=== PATIENT | male | born 1960 | race Caucasian/White ===

== ENCOUNTER 2016-10-13 10:03 | Inpatient (IN) | payer MEDICAID, OTHER ==
[~2016-10-13] VITALS: Ht 177.8 cm; Wt 93.2 kg
[2016-10-13 10:26] VITALS: PULSE 84
[2016-10-13] MEDS ORDERED: PIPER-TAZO 3.375 GM IV (PMX) 100 ML IVPB STA (10:27)
[2016-10-13] MEDS ORDERED: SODIUM CHLORIDE 0.9% 1L BAG IV* STA (10:27)
[2016-10-13] MEDS ORDERED: VANCOMYCIN 1 GM (PMX) 250 ML IVPB STA (10:27)
[2016-10-13] MEDS ORDERED: ONDANSETRON 4 MG INJ IV PRN ×2 (11:00→11:30)
[2016-10-13] MEDS ORDERED: ACETAMINOPHEN 325 MG TAB PO PRN ×2 (11:00→11:30)
[2016-10-13 11:04] LABS: BASOPHILS % 0.5 % (0.0-2.0); EOSINOPHILS % 0.6 % (0.0-7.0); HEMATOCRIT 43.2 % (42.0-52.0); HEMOGLOBIN 14.4 g/dl (14.0-18.0); LYMPHOCYTES # 1.4 10^3/ul (0.8-2.9); LYMPHOCYTES % 20.7 % (15.0-51.0); MEAN CORPUSCULAR HEMOGLOBIN 30.2 pg (29.0-33.0); MEAN CORPUSCULAR HGB CONC 33.3 g/dl (32.0-37.0); MEAN CORPUSCULAR VOLUME 90.6 fl (82.0-101.0); MONOCYTE # 0.8 10^3/ul (0.3-0.9); MONOCYTES % 11.6 % (0.0-11.0); NEUTROPHILS % 66.3 % (39.0-77.0); PLATELET COUNT 218 10^3/UL (140-415); RED BLOOD COUNT 4.77 10^6/ul (4.70-6.10); RED CELL DISTRIBUTION WIDTH 13.4 % (11.5-14.5); WHITE BLOOD COUNT 6.5 10^3/ul (4.8-10.8)
--- NOTE | 2016-10-13 11:17 | RADRPT ---
PROCEDURE: XR Chest. CLINICAL INDICATION: Sepsis . TECHNIQUE: Single frontal chest x-ray. COMPARISON: None. FINDINGS: The lungs are clear of acute infiltrates, edema, effusions, or masses.. The cardiomediastinal silho uette is unremarkable. The osseous structures are intact. IMPRESSION: No acute cardiopulmonary disease. RPTAT: AA .Aung Mora MD, MD Date Time Electronically viewed and signed by .Aung Mora MD, MD on 10/13/2016 11:17 .L/
[2016-10-13 11:28] LABS: PARTIAL THROMBOPLASTIN TIME 31.5 Sec (25.0-35.0)
[2016-10-13] MEDS ORDERED: NACL 0.9% 3 ML SYG IV SCH (11:30)
[2016-10-13] MEDS ORDERED: HYDROCODONE/APAP (5/325) TAB PO PRN (11:30)
[2016-10-13] MEDS ORDERED: VANCOMYCIN IV PER PHARMACY XX SCH (11:30)
[2016-10-13 11:31] LABS: ALANINE AMINOTRANSFERASE 28 IU/L (13-69); ALBUMIN/GLOBULIN RATIO 1.08; ALKALINE PHOSPHATASE 95 IU/L (42-121); ANION GAP 12 (8-16); ASPARTATE AMINO TRANSFERASE 30 IU/L (15-46); BILIRUBIN,INDIRECT 0.5 mg/dl (0-1.1); BILIRUBIN,TOTAL 0.5 mg/dl (0.2-1.3); BLOOD UREA NITROGEN 12 mg/dl (7-20); CALCIUM 9.4 mg/dl (8.4-10.2); CARBON DIOXIDE 27 mmol/L (21-31); CHLORIDE 101 mmol/L (97-110); CREATININE 0.74 mg/dl (0.61-1.24); GLUCOSE 99 mg/dl (70-220); POTASSIUM 3.5 mmol/L (3.5-5.1); SODIUM 136 mmol/L (135-144); TOTAL PROTEIN 7.7 g/dl (6.1-8.1)
[2016-10-13 11:33] LABS: ADD UMIC YES; UR ASCORBIC ACID NEGATIVE (NEGATIVE); UR BILIRUBIN (Dip) NEGATIVE (NEGATIVE); UR BLOOD (Dip) 3+ mg/dL (NEGATIVE); UR CLARITY CLEAR (CLEAR); UR COLOR YELLOW (YELLOW); UR GLUCOSE (Dip) NEGATIVE (NEGATIVE); UR KETONES (Dip) NEGATIVE (NEGATIVE); UR LEUKOCYTE ESTERASE (Dip) NEGATIVE Leu/ul (NEGATIVE); UR MUCUS FEW /HPF (NONE SEEN); UR NITRITE (Dip) NEGATIVE (NEGATIVE); UR RBC 7 /HPF (0-5); UR SPECIFIC GRAVITY (Dip) 1.024 (1.003-1.030); UR TOTAL PROTEIN (Dip) NEGATIVE (NEGATIVE); UR UROBILINOGEN (Dip) 1+ mg/dL (NEGATIVE)
[2016-10-13 11:43] LABS: TROPONIN-I < 0.012 ng/ml (0.00-0.12)
--- NOTE | 2016-10-13 11:56 | HP ---
Date/Time of Note Date/Time of Note DATE: 10/13/16 TIME: 11:54 Assessment/Plan VTE Prophylaxis VTE Prophylaxis Intervention: LMWH Assessment/Plan Chief Complaint/Hosp Course 1. Left lower extremity cellulitis. Patient will be continued on empiric antibiotics. Pancultures will be obtained. Will trend lactic acid levels. Left lower extremity venous Doppler study will be obtained. 2. History of left lower extremity venous insufficiency. Will obtain left lower extremity venous Doppler study. Plan: The patient will be admitted to inpatient medical/surgical floor. The patient will be started on a regular diet. The patient will be started on DVT prophylaxis and gastrointestinal prophylaxis. The patient will remain a full code. Activities will be as tolerated. The rest of the patient's management will be based on the clinical course, inputs from consultants, and the results of diagnostic studies. Based on the patient's clinical presentation, he most probably requires at least 2 midnights' stay for further management and evaluation of his clinical presentation. The case and management of this patient was fully discussed with . Problems: HPI/ROS Admit Date/Time Admit Date/Time Reason for admission: Left lower extremity edema, pain, and erythema. Consultants 1. Gasper Casiano MD, Infectious Diseases. 2. Josh Swan MD, Vascular Surgery. This is a 56-year-old male who denies any significant past medical history other than a history of left lower extremity cellulitis in 2011 came to the emergency room with chief complaint of left lower extremity edema, erythema , and pain that started 3 days ago. The patient denied any obvious injuries to the left lower extremity. The patient verbalized that he had a surgery done to this extremity back in the in [place]. The patient also verbalized subjective fevers at home. The patient denied taking any medication specifically for this. In the emergency room, the patient was noticed to be afebrile. The patient had no leukocytosis. The patient's chemistry panel was within normal limits. However, physical examination showed significant erythema of the left lower extremity with edema. No venous Doppler study was done in the ER. The patient was treated with IV Zosyn in the emergency room. ROS Constitutional: no complaints Eyes: no complaints ENT: no complaints Respiratory: no complaints Cardiovascular: no complaints Gastrointestinal: no complaints Genitourinary: no complaints Musculoskeletal: no complaints Skin: bruising, erythema Neurologic: no complaints Endocrine: no complaints Lymphatic: lymphadema Psychological: no complaints Immunologic: no complaints PMH/Family/Social Past Medical History Medical History: no pertinent history Past Surgical History Past Surgical Hx: other (Left lower extremity venous surgery in the 1990s back in [place].) Social History Alcohol Use: occasionally Smoking Status: Never smoker Drug Use: none Exam/Review of Systems Vital Signs Vitals Vital Signs Date Time Temp Pulse Resp B/P Pulse Ox O2 Delivery O2 Flow Rate FiO2 10/13/16 10:26 84 20 131/80 98 10/13/16 10:05 97.6 Exam Exam General: Adequately build 56 year-old male lying in bed in no apparent distress. HEENT: Normocephalic, atraumatic. Eyes: Anicteric sclerae, conjunctivae clear. ENT: Nasal septum midline, oral mucosa moist. Neck supple, no JVD noticed. Respiratory: Bilaterally clear breath sounds. No use of accessory muscles of respiration. No adventitious breath sounds. Cardiovascular: S1, S2 heard. No murmurs or gallops. Abdomen: Soft, nontender, and nondistended. Bowel sounds positive in all 4 quadrants. Genitourinary: Deferred. Extremities: No cyanosis, no clubbing. Peripheral pulses palpable. Left lower extremity erythema and edema mostly on the dorsal aspect of the jo with tenderness to touch. Discoloration of the ventral aspect of the left jo. Neurologic: Cranial nerves II through XII grossly intact. The patient is awake, alert, and oriented. Labs Result Diagram: 10/13/16 1052 10/13/16 1052 Medications Medications Current Medications Ondansetron HCl (Zofran Inj) 4 mg Q6H PRN IV NAUSEA AND/OR VOMITING; Start 10/13 at 11:30 Acetaminophen (Tylenol Tab) 650 mg Q6H PRN PO PAIN LEVEL 1-3 OR FEVER; Start at 11:30 Acetaminophen/ Hydrocodone Bitart ([place] (5/325)) 1 tab Q6H PRN PO MODERATE PAIN LEVEL 4-6; Start 10/13/16 at 11:30 Famotidine (Pepcid) 20 mg Q12 PO ; Start 10/13/16 at 21:00 Enoxaparin Sodium 40 mg 40 mg DAILY SC ; Start 10/14/16 at 09:00 Levofloxacin/ Dextrose (Levaquin 500mg/ D5W 100 ml (Pmx)) 100 ml @ 100 mls/hr Q24H IVPB ; Start 10/13/16 at 11:30 Procedures Procedures CXR IMPRESSION: No acute cardiopulmonary disease. AP CNAO MASTICATOR Oct 13, 2016 11:56
[2016-10-13 12:03] VITALS: BP 132/83; RESP 18
[2016-10-13 12:11] LABS: INR 0.95; PROTIME 12.7 Sec (12.2-14.2)
[2016-10-13 12:20] VITALS: Ht 177.8 cm; Wt 93.2 kg
[2016-10-13] MEDS ORDERED: VANCOMYCIN 2 GM in SOD CHLORIDE 0.9% 500 ML IVPB SCH (13:00)
--- NOTE | 2016-10-13 13:15 | ERA ---
ER Documentation Chief Complaint Date/Time DATE: 10/13/16 TIME: 13:13 Chief Complaint LEFT LOWER LEG REDNESS AND SWELLING FORM WOUND FOR 3 DAYS. HPI Patient is a 56-year-old male with previous cellulitis who presents with left leg wound and redness. He said that on Thursday he started with these symptoms. He has a history of the same when he had cellulitis in the past. He has fever yesterday but none today. He said that it is painful. He has had no treatment as of yet. Upon review of old medical records the patient one previous visit in 2011 for cellulitis. He does not currently have a primary doctor. ROS All systems reviewed and are negative except as per history of present illness. Medications Home Meds No Active Prescriptions or Reported Meds Allergies Allergies: Coded Allergies: No Known Allergy (Unverified , 10/13/16) PMhx/Soc History of Surgery: Yes (PREV. UNK SX TO LLE ) Anesthesia Reaction: No Hx Neurological Disorder: No Hx Respiratory Disorders: No Hx Cardiac Disorders: No Hx Psychiatric Problems: No Hx Miscellaneous Medical Probl: No Hx Alcohol Use: Yes (OCCASIONALLY ) Hx Substance Use: No Hx Tobacco Use: No Smoking Status: Never smoker FmHx Family History: diabetes Physical Exam Vitals Vital Signs Date Time Temp Pulse Resp B/P Pulse Ox O2 Delivery O2 Flow Rate FiO2 10/13/16 10:26 84 20 131/80 98 10/13/16 10:05 97.6 93 20 131/80 98 Physical Exam Const: Mild distress secondary to pain Head: Atraumatic Eyes: Normal Conjunctiva ENT: Normal External Ears, Nose and Mouth. Neck: Full range of motion..~ No meningismus. Resp: Clear to auscultation bilaterally Cardio: Regular rate and rhythm, no murmurs Abd: Soft, non tender, non distended. Normal bowel sounds Skin: Left lower extremity redness with central wound approximately 2 x 2 centimeters with drainage consistent with cellulitis without abscess Back: No midline or flank tenderness Ext: No cyanosis, or edema Neur: Awake and alert Psych: Normal Mood and Affect Result Diagram: 10/13/16 1052 10/13/16 1052 Results 24 hrs Current Medications Medications (Trade) Dose Ordered Sig/Rosanne Route PRN Reason Start Time Stop Time Status Last Admin Dose Admin Sodium Chloride 2170 ml 2,170 ml BOLUS OVER 2 HOURS STAT IV* 10/13/16 10:27 10/13/16 10:29 DC 10/13/16 11:12 Vancomycin HCl 250 ml @ 125 mls/hr ONCE STAT IVPB 10/13/16 10:27 10/13/16 12:26 DC Piperacillin Sod/ Tazobactam Sod (Zosyn 3.375gm/ 100 ml (Pmx)) 100 ml @ 200 mls/hr ONCE STAT IVPB 10/13/16 10:27 10/13/16 10:56 DC 10/13/16 11:12 Procedures/MDM Patient is a 56-year-old male who presents with a left leg cellulitis. At this point I doubt necrotizing fasciitis or abscess. He will need IV antibiotics and I have given vancomycin and Zosyn. At this point I doubt sepsis. The patient will be admitted to a medical surgical bed under the care of the panel team as he does not currently have a primary doctor. The patient understands the plan and is okay for admission at this time. Departure Diagnosis: Primary Impression: Erythema Additional Impression: Cellulitis Qualified Code: L03.116 - Cellulitis of left lower extremity Condition: Stable CAROLE JAY MD Oct 13, 2016 13:15
[2016-10-13] MEDS: LEVOFLOXACIN 500MG/D5W (PMX) 100 ML IVPB SCH (13:30)
--- NOTE | 2016-10-13 13:34 | RADRPT ---
PROCEDURE: Ultrasound of the left lower extremity venous system. CLINICAL INDICATION: Left leg pain and swelling, deep venous thrombosis TECHNIQUE: Harrell scale with and without compression, color doppler, spectral doppler of the venous system of the left lower extremity was performed. Venous augmentation maneuvers were utilized. COMPARISON: 10/26/2011 FINDINGS: Common femoral vein: Patent. Femoral vein: Patent. Popliteal vein: Patent. Calf veins: Patent. No soft tissue abnormalities are identified. IMPRESSION: No evidence of a deep vein thrombosis within the left lower extremity. RPTAT: AADD .Layo Levi MD, MD Date Time Electronically viewed and signed by .Layo Levi MD, MD on 10/13/2016 13:34 .B/
[2016-10-13 15:19] VITALS: BP 116/70; RESP 18
--- NOTE | 2016-10-13 17:48 | CONS ---
Date/Time of Note Date/Time of Note DATE: 10/13/16 TIME: 17:38 Assessment/Plan Assessment/Plan Chief Complaint/Hosp Course ID SHORT NOTE-> Full not consult note to follow CURRENT ABX: Vanco IV + Levaquin s/p Zosyn in ED * Afebrile, VSS, NAD * CXR 10/13: No acute process * LLEXT (-)DVT Exam General: Adequately build 56 year-old male lying in bed in no apparent distress. HEENT: Unremarkable, no oral thrush NECK: Supple, full ROM Respiratory: Equal chest rise bilaterally. No use of accessory muscles of respiration. Extremities: No cyanosis, no clubbing. Peripheral pulses palpable. (+)LLEXT erythema and edema pre-tibial + dorsal foot w/ underlying hyperpigmentation changes Neurologic: Grossly intact ID ASSESSMENT 1. LLEXT Cellulitis (-)DVT 2. PVD: Hx of venous insufficiency * Hx of prior LEXT venous surgery 1994 in [place] 3. Shoulder pain -- shoulder injury 2015 4. Gastritis 1994 CURRENT ABX: Vanco IV + Levaquin s/p Zosyn in ED ID RECOMMENDATIONS 1. Continue Vanco IV + Levaquin 2. Thank you -- ID will follow . Problems: Consultation Date/Type/Reason Admit Date/Time Oct 13, 2016 at 10:47 Initial Consult Date Exam/Review of Systems Vital Signs Vitals Vital Signs Date Time Temp Pulse Resp B/P Pulse Ox O2 Delivery O2 Flow Rate FiO2 10/13/16 15:19 98.4 74 18 116/70 99 Results Result Diagram: 10/13/16 1052 10/13/16 1052 Results 24 hrs Laboratory Tests Test 10/13/16 10:52 10/13/16 11:00 10/13/16 12:45 10/13/16 15:28 White Blood Count 6.5 Red Blood Count 4.77 Hemoglobin 14.4 Hematocrit 43.2 Mean Corpuscular Volume 90.6 Mean Corpuscular Hemoglobin 30.2 Mean Corpuscular Hemoglobin Concent 33.3 Red Cell Distribution Width 13.4 Platelet Count 218 Mean Platelet Volume 11.0 H Neutrophils % 66.3 Lymphocytes % 20.7 Monocytes % 11.6 H Eosinophils % 0.6 Basophils % 0.5 Nucleated Red Blood Cells % 0.0 Neutrophils # (Manual) 4.3 Lymphocytes # 1.4 Monocytes # 0.8 Eosinophils # 0.0 Basophils # 0.0 Nucleated Red Blood Cells # 0.0 Prothrombin Time 12.7 Prothrombin Time Ratio 1.0 INR International Normalized Ratio 0.95 Activated Partial Thromboplast Time 31.5 Sodium Level 136 Potassium Level 3.5 Chloride Level 101 Carbon Dioxide Level 27 Anion Gap 12 Blood Urea Nitrogen 12 Creatinine 0.74 Glucose Level 99 Lactic Acid Level 1.0 1.0 1.1 Calcium Level 9.4 Total Bilirubin 0.5 Direct Bilirubin 0.00 Indirect Bilirubin 0.5 Aspartate Amino Transf (AST/SGOT) 30 Alanine Aminotransferase (ALT/SGPT) 28 Alkaline Phosphatase 95 Troponin I < 0.012 Total Protein 7.7 Albumin 4.0 Globulin 3.70 H Albumin/Globulin Ratio 1.08 Urine Color YELLOW Urine Clarity CLEAR Urine pH 5.0 Urine Specific [place] 1.024 Urine Ketones NEGATIVE Urine Nitrite NEGATIVE Urine Bilirubin NEGATIVE Urine Urobilinogen 1+ H Urine Leukocyte Esterase NEGATIVE Urine Microscopic RBC 7 H Urine Microscopic WBC 1 Urine Mucus FEW A Urine Hemoglobin 3+ H Urine Glucose NEGATIVE Urine Total Protein NEGATIVE Hemoglobin A1c 5.5 Magnesium Level 2.0 Vitamin D 1,25-Dihydroxy 25.8 L Medications Medications Current Medications Ondansetron HCl (Zofran Inj) 4 mg Q6H PRN IV NAUSEA AND/OR VOMITING; Start 10/13 at 11:30 Acetaminophen (Tylenol Tab) 650 mg Q6H PRN PO PAIN LEVEL 1-3 OR FEVER; Start at 11:30 Acetaminophen/ Hydrocodone Bitart ([place] (5/325)) 1 tab Q6H PRN PO MODERATE PAIN LEVEL 4-6; Start 10/13/16 at 11:30 Famotidine (Pepcid) 20 mg Q12 PO ; Start 10/13/16 at 21:00 Enoxaparin Sodium 40 mg 40 mg DAILY SC ; Start 10/14/16 at 09:00 Levofloxacin/ Dextrose 100 ml @ 100 mls/hr Q24H IVPB Last administered on 13:30; Admin Dose 100 MLS/HR; Start 10/13/16 at 11:30 Vancomycin HCl 2 gm/Sodium Chloride 500 ml @ 125 mls/hr NOW IVPB Last administered on 10/13/16 14:37; Admin Dose 125 MLS/HR; Start 10/13/16 at 13:00; Stop 10/13/16 at 20:00 Vancomycin HCl/ Sodium Chloride (Vancocin/NS) 250 ml @ 83.333 mls/ hr Q12H IVPB ; Start 10/14/16 at 02:00 UMANG RODRIGUEZ NP Oct 13, 2016 17:48
[2016-10-13 19:38] VITALS: BP 126/79; RESP 20
[2016-10-13] MEDS: FAMOTIDINE 20 MG TAB PO SCH (20:37)
[2016-10-14 01:31] VITALS: BP_SYST 115; BP_SYST 124; BP_DIAS 57; BP_DIAS 63; RESP 20
[2016-10-14] MEDS: VANCOMYCIN 1.5 GM in SOD CHLORIDE 0.9% 250 ML IVPB SCH ×3 (02:00→17:48)
--- NOTE | 2016-10-14 02:49 | CONS ---
DATE OF ADMISSION: 10/13/2016 DATE OF CONSULTATION: 10/14/2016 REFERRING PHYSICIAN: Jus Sheehan MD. HISTORY OF PRESENT ILLNESS: I am seeing this patient for Dr. Casiano. This patient is a 56-year-old male who was admitted from home with a chief complaint of a left wound abscess and pain x2 days prior to admission. The patient, on admission, was noted to have redness and swelling and purplish and brownish discoloration to the anterior left leg. There was reported to be a 2 x 2 cm wound, which is not present on this present examination, which had some drainage. His white count was 6500, hematocrit 43%. The patient did not recall having any physical trauma to the leg but recalled having it several months ago. Also, he has had a history of cellulitis in 2011 and without any positive culture results in this same leg. The patient does not have a primary care physician. PHYSICAL EXAMINATION: GENERAL: Reveals a well developed, well nourished male in no acute distress. HEENT: Pupils are equal, round, and reactive to light. Extraocular movements are full. VITALS: Blood pressure is 126/79, respirations 2, pulse 69, temperature 98.1. NECK: Supple. No jugular venous distention. CHEST: Clear to auscultation. HEART: Without gallop, murmur, or rub. ABDOMEN: Soft. No palpable evidence of masses. EXTREMITIES: Reveal a large area of reddish-brown discoloration on most of the anterior lateral left leg. There is no large amount of ankle swelling. There is a palpable fluid underneath, the lateral aspect of the tibia on the left. The findings are consistent with an old blood clot, which has resolved, rather than a purulent drainage. Distal pedal pulses are intact. IMPRESSION: 1. Cellulitis, left leg. 2. Infected hematoma, left leg. RECOMMENDATIONS: Continue Vancomycin and add cefazolin 1 gram IV q.8 hours until proper cultures are obtained, and also rule out MRSA by culture and/or any drainage. I have recommended getting an MRI of the leg, as this appears to be chronic, and also the patient will also need either some aspiration or incision and drainage of his lower leg. Thank you Dr. Sheehan for referring this patient to Dr. Casiano. Dictated By: Cristal Dominguez MD /roxana/grs /Document#: [id number]
[2016-10-14] MEDS ORDERED: CEFAZOLIN 1 GM/50 ML (PMX) 50 ML IVPB SCH (04:00)
[2016-10-14 05:44] LABS: BASOPHILS % 0.2 % (0.0-2.0); EOSINOPHILS # 0.2 10^3/ul (0.0-0.5); EOSINOPHILS % 2.8 % (0.0-7.0); HEMATOCRIT 42.5 % (42.0-52.0); HEMOGLOBIN 14.1 g/dl (14.0-18.0); LYMPHOCYTES # 1.5 10^3/ul (0.8-2.9); LYMPHOCYTES % 24.1 % (15.0-51.0); MEAN CORPUSCULAR HEMOGLOBIN 30.3 pg (29.0-33.0); MEAN CORPUSCULAR HGB CONC 33.2 g/dl (32.0-37.0); MEAN CORPUSCULAR VOLUME 91.4 fl (82.0-101.0); MONOCYTE # 0.6 10^3/ul (0.3-0.9); MONOCYTES % 9.9 % (0.0-11.0); NEUTROPHILS % 62.8 % (39.0-77.0); PLATELET COUNT 210 10^3/UL (140-415); RED BLOOD COUNT 4.65 10^6/ul (4.70-6.10); RED CELL DISTRIBUTION WIDTH 13.5 % (11.5-14.5); WHITE BLOOD COUNT 6.1 10^3/ul (4.8-10.8)
[2016-10-14] MEDS: CEFAZOLIN 1 GM/50 ML (PMX) 50 ML IVPB SCH ×3 (05:45→22:03)
[2016-10-14] MEDS ORDERED: CEFAZOLIN 1 GM INJ IV SCH (06:00)
[2016-10-14 06:09] LABS: ALBUMIN 3.5 g/dl (3.3-4.9); ALBUMIN/GLOBULIN RATIO 1.02; BILIRUBIN,INDIRECT 0.5 mg/dl (0-1.1); BILIRUBIN,TOTAL 0.5 mg/dl (0.2-1.3); CALCIUM 8.9 mg/dl (8.4-10.2); CREATININE 0.82 mg/dl (0.61-1.24); POTASSIUM 3.8 mmol/L (3.5-5.1); TOTAL PROTEIN 6.9 g/dl (6.1-8.1)
[2016-10-14 06:13] LABS: CHOL/HDL RATIO 2.3 RATIO
[2016-10-14 07:39] VITALS: BP 102/58; RESP 18
[2016-10-14] MEDS: FAMOTIDINE 20 MG TAB PO SCH ×2 (08:04→20:39)
[2016-10-14] MEDS: ENOXAPARIN 40 MG/0.4 ML SYG SC SCH (08:13)
--- NOTE | 2016-10-14 10:01 | PN ---
Date/Time of Note Date/Time of Note DATE: 10/14/16 TIME: 09:41 Assessment/Plan VTE Prophylaxis VTE Prophylaxis Intervention: LMWH Lines/Catheters IV [facility] Peripheral IV Assessment/Plan Chief Complaint/Hosp Course 1. Left lower extremity cellulitis. The patient will be continued on empiric antibiotics. Venous Doppler study negative for any DVT. Pending left lower extremity MRI. 2. History of left lower extremity venous insufficiency. Vascular surgery consult has been obtained. 3. Fluids, electrolytes, and nutrition. Regular diet. 4. DVT prophylaxis. Subcutaneous Lovenox. 5. Plan. Pending vascular surgery evaluation. Continue antimicrobials. Case discussed with Dr. Lopez. Problems: Subjective 24 Hr Interval Summary Free Text/Dictation Denies any left lower extremity pain. Remains afebrile. Exam/Review of Systems Vital Signs Vitals Vital Signs Date Time Temp Pulse Resp B/P Pulse Ox O2 Delivery O2 Flow Rate FiO2 10/14/16 07:39 98.7 76 18 102/58 100 Intake and Output 10/13/16 10/13/16 10/14/16 14:59 22:59 06:59 Intake Total 200 ml 1300 ml 540 ml Balance 200 ml 1300 ml 540 ml Exam General: Adequately build 56 year-old male lying in bed in no apparent distress. HEENT: Normocephalic, atraumatic. Eyes: Anicteric sclerae, conjunctivae clear. ENT: Nasal septum midline, oral mucosa moist. Neck supple, no JVD noticed. Respiratory: Bilaterally clear breath sounds. No use of accessory muscles of respiration. No adventitious breath sounds. Cardiovascular: S1, S2 heard. No murmurs or gallops. Abdomen: Soft, nontender, and nondistended. Bowel sounds positive in all 4 quadrants. Genitourinary: Deferred. Extremities: No cyanosis, no clubbing. Peripheral pulses palpable. Left lower extremity erythema and edema mostly on the dorsal aspect of the jo with tenderness to touch. Left lower extremity varicosities. Discoloration of the ventral aspect of the left jo. Neurologic: Cranial nerves II through XII grossly intact. The patient is awake, alert, and oriented. Results Result Diagram: 10/14/16 0521 10/14/16 0521 Results 24 hrs Laboratory Tests Test 10/13/16 10:52 10/13/16 11:00 10/13/16 12:45 10/13/16 15:28 White Blood Count 6.5 Red Blood Count 4.77 Hemoglobin 14.4 Hematocrit 43.2 Mean Corpuscular Volume 90.6 Mean Corpuscular Hemoglobin 30.2 Mean Corpuscular Hemoglobin Concent 33.3 Red Cell Distribution Width 13.4 Platelet Count 218 Mean Platelet Volume 11.0 H Neutrophils % 66.3 Lymphocytes % 20.7 Monocytes % 11.6 H Eosinophils % 0.6 Basophils % 0.5 Nucleated Red Blood Cells % 0.0 Neutrophils # (Manual) 4.3 Lymphocytes # 1.4 Monocytes # 0.8 Eosinophils # 0.0 Basophils # 0.0 Nucleated Red Blood Cells # 0.0 Prothrombin Time 12.7 Prothrombin Time Ratio 1.0 INR International Normalized Ratio 0.95 Activated Partial Thromboplast Time 31.5 Sodium Level 136 Potassium Level 3.5 Chloride Level 101 Carbon Dioxide Level 27 Anion Gap 12 Blood Urea Nitrogen 12 Creatinine 0.74 Glucose Level 99 Lactic Acid Level 1.0 1.0 1.1 Calcium Level 9.4 Total Bilirubin 0.5 Direct Bilirubin 0.00 Indirect Bilirubin 0.5 Aspartate Amino Transf (AST/SGOT) 30 Alanine Aminotransferase (ALT/SGPT) 28 Alkaline Phosphatase 95 Troponin I < 0.012 Total Protein 7.7 Albumin 4.0 Globulin 3.70 H Albumin/Globulin Ratio 1.08 Urine Color YELLOW Urine Clarity CLEAR Urine pH 5.0 Urine Specific [place] 1.024 Urine Ketones NEGATIVE Urine Nitrite NEGATIVE Urine Bilirubin NEGATIVE Urine Urobilinogen 1+ H Urine Leukocyte Esterase NEGATIVE Urine Microscopic RBC 7 H Urine Microscopic WBC 1 Urine Mucus FEW A Urine Hemoglobin 3+ H Urine Glucose NEGATIVE Urine Total Protein NEGATIVE Hemoglobin A1c 5.5 Magnesium Level 2.0 Vitamin D 1,25-Dihydroxy 25.8 L Test 10/14/16 05:21 White Blood Count 6.1 Red Blood Count 4.65 L Hemoglobin 14.1 Hematocrit 42.5 Mean Corpuscular Volume 91.4 Mean Corpuscular Hemoglobin 30.3 Mean Corpuscular Hemoglobin Concent 33.2 Red Cell Distribution Width 13.5 Platelet Count 210 Mean Platelet Volume 11.0 H Neutrophils % 62.8 Lymphocytes % 24.1 Monocytes % 9.9 Eosinophils % 2.8 Basophils % 0.2 Nucleated Red Blood Cells % 0.0 Neutrophils # (Manual) 3.8 Lymphocytes # 1.5 Monocytes # 0.6 Eosinophils # 0.2 Basophils # 0.0 Nucleated Red Blood Cells # 0.0 Sodium Level 138 Potassium Level 3.8 Chloride Level 102 Carbon Dioxide Level 29 Anion Gap 11 Blood Urea Nitrogen 11 Creatinine 0.82 Glucose Level 101 Calcium Level 8.9 Phosphorus Level 3.0 Magnesium Level 2.0 Total Bilirubin 0.5 Direct Bilirubin 0.00 Indirect Bilirubin 0.5 Aspartate Amino Transf (AST/SGOT) 29 Alanine Aminotransferase (ALT/SGPT) 27 Alkaline Phosphatase 79 Total Protein 6.9 Albumin 3.5 Globulin 3.40 H Albumin/Globulin Ratio 1.02 Triglycerides Level 59 Cholesterol Level 155 LDL Cholesterol, Calculated 76 HDL Cholesterol 67 Cholesterol/HDL Ratio 2.3 Medications Medications Current Medications Ondansetron HCl (Zofran Inj) 4 mg Q6H PRN IV NAUSEA AND/OR VOMITING; Start 10/13 at 11:30 Acetaminophen (Tylenol Tab) 650 mg Q6H PRN PO PAIN LEVEL 1-3 OR FEVER; Start at 11:30 Acetaminophen/ Hydrocodone Bitart ([place] (5/325)) 1 tab Q6H PRN PO MODERATE PAIN LEVEL 4-6; Start 10/13/16 at 11:30 Famotidine (Pepcid) 20 mg Q12 PO Last administered on 10/14/16 08:04; Admin Dose 20 MG; Start 10/13/16 at 21:00 Enoxaparin Sodium 40 mg 40 mg DAILY SC Last administered on 10/14/16 08:13; Admin Dose 40 MG; Start 10/14/16 at 09:00 Levofloxacin/ Dextrose 100 ml @ 100 mls/hr Q24H IVPB Last administered on 13:30; Admin Dose 100 MLS/HR; Start 10/13/16 at 11:30 Vancomycin HCl 1.5 gm/Sodium Chloride 250 ml @ 83.333 mls/ hr Q12H IVPB Last administered on 10/14/16 02:42; Admin Dose 83.333 MLS/HR; Start 10/14/16 at 02:00 Cefazolin Sodium (Ancef 1 Gm/50 ml (Pmx)) 50 ml @ 100 mls/hr Q8 IVPB Last administered on 10/14/16 05:45; Admin Dose 100 MLS/HR; Start 10/14/16 at 06:00; Stop 10/15/16 at 14:30 Miscellaneous Information (*Rx Drug Level Order Reminder*) VANCOMYCIN TROUGH ON ... ONCE ONCE XX ; Start 10/15/16 at 01:00; Stop 10/15/16 at 01:01 AP CANO NP Oct 14, 2016 10:00
--- NOTE | 2016-10-14 10:38 | RADRPT ---
PROCEDURE: MRI of the left lower extremity CLINICAL INDICATION: Left lower extremity pain, ulcer, cellulitis, concern for osteomyelitis TECHNIQUE: Multiplanar multisequence images of the left lower extremity without utilizing multiple pulse sequences. Images were interpreted at a independent PACS workstation. COMPARISON: None available FINDINGS: There is diffuse subcutaneous soft tissue swelling throughout the left calf, greatest at the lower c prachi near the ankle (axial 38). There is no discrete drainable fluid collection. There are prominen t varicose veins noted. There is no evidence of acute fracture or osteomyelitis. There is no evidence of acute muscle or te ndon tear. Limited evaluation of the right lower extremity on large field of view images appears un remarkable. IMPRESSION: 1. Diffuse subcutaneous soft tissue swelling throughout the left calf, query cellulitis. No drainab le fluid collection. 2. No evidence of acute fracture or osteomyelitis. 3. No evidence of tendon tear. RPTAT: UU .Travis Penaloza MD, MD Date Time Electronically viewed and signed by .Travis Penaloza MD, on 10/14/2016 10:37 .K/
[2016-10-14] MEDS: LEVOFLOXACIN 500MG/D5W (PMX) 100 ML IVPB SCH (11:16)
[2016-10-14 14:57] VITALS: BP 122/74; RESP 18
[2016-10-14 19:38] VITALS: BP 122/74; RESP 18
--- NOTE | 2016-10-14 21:37 | PN ---
DATE: 10/14/2016 SUBJECTIVE DATA: No acute changes. Patient is awake, looks comfortable. Denies pain. No fevers. MICROBIOLOGY: Blood and urine culture negative. WBC today is 6.1, no shift, no bands. BUN 11, creatinine 0.82. DIAGNOSTICS: MRI of left lower extremity revealed no drainable fluid collection of left lower extremity, no evidence of acute fracture or osteomyelitis, no evidence of tear. Extremities: Venous study revealed no DVT. ANTIMICROBIALS: Patient is on: 1. Vancomycin. 2. Ancef. PHYSICAL EXAMINATION: GENERAL: Well-developed, well-nourished middle-aged man, who is alert, in no distress. HEENT: Head atraumatic, normocephalic. Sclerae anicteric. Buccal mucosa dry. NECK: Supple. CHEST: Rise symmetrical. Breath sounds diminished. Clear to auscultation. HEART: S1, S2. ABDOMEN: Soft, bowel sounds present. EXTREMITIES: Without cyanosis. Left lower extremity with erythema. ASSESSMENT: Left lower extremity cellulitis, infected hematoma, no evidence of osteomyelitis, no evidence of abscess. PLAN: Patient remains stable. Continue present care. Continue on current antibiotics. Await for clinical improvement. Dictated By: Carolyne Carmichael NP /roxana/pito /Document#: [id number]
[2016-10-15 02:00] VITALS: BP 115/68; RESP 18
[2016-10-15] MEDS: VANCOMYCIN 1.5 GM in SOD CHLORIDE 0.9% 250 ML IVPB SCH ×2 (02:22→13:33)
[2016-10-15 05:51] LABS: BASOPHILS % 0.4 % (0.0-2.0); EOSINOPHILS # 0.1 10^3/ul (0.0-0.5); EOSINOPHILS % 2.5 % (0.0-7.0); HEMOGLOBIN 14.9 g/dl (14.0-18.0); LYMPHOCYTES # 1.6 10^3/ul (0.8-2.9); LYMPHOCYTES % 30.5 % (15.0-51.0); MEAN CORPUSCULAR HGB CONC 33.9 g/dl (32.0-37.0); MEAN CORPUSCULAR VOLUME 91.7 fl (82.0-101.0); MEAN PLATELET VOLUME 11.2 fl (7.4-10.4); MONOCYTE # 0.6 10^3/ul (0.3-0.9); MONOCYTES % 11.9 % (0.0-11.0); NEUTROPHILS % 54.5 % (39.0-77.0); PLATELET COUNT 242 10^3/UL (140-415); RED CELL DISTRIBUTION WIDTH 13.3 % (11.5-14.5); WHITE BLOOD COUNT 5.1 10^3/ul (4.8-10.8)
[2016-10-15] MEDS: CEFAZOLIN 1 GM/50 ML (PMX) 50 ML IVPB SCH ×2 (05:57→12:58)
[2016-10-15 06:28] LABS: PHOSPHORUS 3.5 mg/dl (2.5-4.9)
[2016-10-15 06:29] LABS: CALCIUM 9.2 mg/dl (8.4-10.2); CREATININE 0.88 mg/dl (0.61-1.24); POTASSIUM 3.9 mmol/L (3.5-5.1)
[2016-10-15 07:46] VITALS: BP 116/69; RESP 16
[2016-10-15] MEDS: FAMOTIDINE 20 MG TAB PO SCH (08:11)
[2016-10-15] MEDS: ENOXAPARIN 40 MG/0.4 ML SYG SC SCH (08:46)
--- NOTE | 2016-10-15 08:48 | CONS ---
DATE OF ADMISSION: 10/13/2016 DATE OF CONSULTATION: 10/15/2016 REASON FOR CONSULTATION: Cellulitis, lower extremity. HISTORY OF PRESENT ILLNESS: This is a 56-year-old male, admitted because of a left leg wound, abscess and cellulitis, who presented 2 days prior to admission. The patient was started on antibiotics with some resolution of the symptoms. Part of his workup has included a lower extremity venous study, which shows no evidence of any DVT in the left lower extremity. The patient also had an MRI, which showed no evidence of any osteomyelitis. PAST MEDICAL HISTORY: Hypertension. PAST SURGICAL HISTORY: None. ALLERGIES: NONE. SOCIAL HISTORY: No smoking, drinking, or drug use. MEDICATION: Reviewed, which includes: 1. Ancef. 2. Lovenox. 3. Vancomycin. PHYSICAL EXAMINATION: CARDIOVASCULAR: Regular rate and rhythm. LUNGS: Clear. ABDOMEN: Soft. EXTREMITIES: Warm all the way down to the foot. There is cellulitis over the course of the left leg, anterolaterally and medially. There are palpable femoral and pedal pulses. There are signs of an old blood clot. LABORATORY: White count 5 with no left shift, hemoglobin 14.9. IMPRESSION: 1. Cellulitis left lower extremity. 2. Lower extremity venous insufficiency. No evidence of a deep venous thrombosis. RECOMMENDATIONS: We will continue antibiotics, continue anticoagulation. Discussed with the patient. Dictated By: Josh Swan MD /roxana/mari /Document#: [id number]
[2016-10-15] MEDS: LEVOFLOXACIN 500MG/D5W (PMX) 100 ML IVPB SCH (11:07)
--- NOTE | 2016-10-15 13:36 | PN ---
DATE: 10/15/2016 SUBJECTIVE DATA: No acute changes overnight. The patient is alert, feels good, wants to go home. No fevers. LABORATORY AND DIAGNOSTIC DATA: WBC 5.1, no shift. Blood and urine cultures negative. ANTIMICROBIALS: Vanco, Ancef and Levaquin. PHYSICAL EXAMINATION: GENERAL: This is a well-nourished, well-developed, middle-aged, man, who is alert, in no distress. HEENT: Head atraumatic, normocephalic. Sclerae anicteric. Buccal mucosa pink. NECK: Supple. CHEST: Rise symmetrical. Breath sounds clear. HEART: S1, S2. ABDOMEN: Soft, bowel sounds present. EXTREMITIES: Left lower extremity erythema and some drainage. The patient has varicose sites there. ASSESSMENT: Left lower extremity cellulitis secondary to infected hematoma, no evidence of osteomyelitis or abscess. PLAN: 1. The patient remains stable. 2. There is some drainage present on his left leg that looks purulent. We are going to culture it. 3. Keep him on antibiotics. 4. The patient is followed by Dr. Swan in Vascular consultation. 5. No plan for any surgical interventions. Dictated By: Carolyne Carmichael NP /roxana/geovanna /Document#: [id number]
[2016-10-15 14:10] VITALS: BP 115/70; RESP 16
--- NOTE | 2016-10-15 14:20 | PDOCDIS ---
Discharge Instructions DIAGNOSIS Discharge Diagnosis Left lower extremity cellulitis. CONDITION Patient Condition: Stable HOME CARE INSTRUCTIONS: Special Diet: Regular Diet FOLLOW UP/APPOINTMENTS Follow-up Plan Moises Palomo MD Specialty: Internal Medicine Office Address: [address] [place], [place] [id number] Office OTHER ORDERS: Other Orders: 1. Take medications as per prescription. 2. Regular diet as tolerated. 3. Activities as tolerated. Keep the left lower extremity elevated while resting. 4. Please follow-up with your primary care physician in 7 days. If you do not have a primary care physician, please call Dr. Moises Palomo's office. AP CANO NP Oct 15, 2016 14:20
[2016-10-15] MEDS ORDERED: LEVO500T10 PO (14:22)
[2016-10-15] MEDS ORDERED: SULF1TAB31 PO (14:22)
--- NOTE | 2016-10-15 15:42 | DS ---
DATE OF ADMISSION: 10/13/2016 DATE OF DISCHARGE: 10/15/2016 FINAL DIAGNOSES: 1. Left lower extremity cellulitis. 2. Left lower extremity venous insufficiency. CONSULTANTS: 1. Josh Swan MD., Vascular surgery. 2. Markell Dominguez MD., Infectious diseases. HOSPITAL COURSE: This is a 56-year-old, male, who denies any significant past medical history, other than a history of left lower extremity cellulitis in 2011, who came to the emergency room with chief complaint of left lower extremity edema, erythema and pain that started 3 days prior to the day of admission to the hospital. The patient denied any obvious injuries to the left lower extremity. The patient verbalized that he had a surgery done to this extremity back in the in [place]. The patient also verbalized subjective fevers at home. The patient was admitted to inpatient setting to have him further evaluated. The patient was started on empiric antibiotics. Pancultures were obtained. Vascular surgery and Infectious diseases consult was obtained. The patient was seen by vascular surgery and vascular surgery recommended no surgical intervention. The patient underwent a left lower extremity venous Doppler study that was negative for DVT. The patient underwent a left lower extremity MRI that showed diffuse subcutaneous soft tissue swelling of the left calf, suggestive of cellulitis with no evidence of acute fracture or osteomyelitis, and no evidence of any tendon tear. The patient's symptoms improved over the course of the hospital stay. The patient ideally needed to be kept in-house for more IV antibiotic therapy and until the cultures from the left lower extremity wound were available. However, the patient was very insistent that he needs to go back to work, otherwise he will lose his job. The patient will be discharged home on oral antibiotic therapy, to be followed up with outpatient primary care physician at the earliest. DISCHARGE DISPOSITION: The patient will be discharged home today. DISCHARGE INSTRUCTIONS: The patient was instructed to take medications as per prescription. The patient was instructed to follow a regular diet as tolerated. The patient was instructed to resume activities as tolerated., and to keep the left lower extremity elevated while resting. The patient was instructed to follow up with his primary care physician in 7 days, and if he does not have a primary care physician, to please call Dr. Moises Palomo's office. The patient verbalized understanding of his discharge instructions. DISCHARGE CONDITION: Stable. DISCHARGE MEDICATIONS: Levaquin 500 mg orally daily x10 days. Bactrim DS 1 tablets orally twice daily or 10 days. IMAGING: Left lower extremity MRI showed diffuse subcutaneous soft tissue swelling over the left calf, query cellulitis. No drainable fluid collection. No evidence of acute fracture or osteomyelitis. No evidence of tendon tear. Chest x-ray showed no acute cardiopulmonary disease. Left lower extremity venous Doppler study showed no evidence of DVT within the left lower extremity. LABORATORY: Latest CBC: WBC 5.1, hemoglobin 14.9, hematocrit 44.2, platelet count 242,000. Latest BMP: Sodium 140, potassium 3.9, chloride 104, carbon dioxide 20. Anion gap 11. BUN 10, creatinine 0.8, glucose 102, calcium 9.2, phosphorus 3.5, magnesium 2. Hemoglobin A1c 5.5. Fasting lipid panel, triglycerides 59, total cholesterol 145, LDL 76. HDL 67. Blood culture times 4 is negative. Urine culture negative. At this time, I would like to thank all the consultants for seeing the patient and providing clinical recommendations. The case and management of this patient was fully discussed with Dr. Lopez. DISCHARGE TIME SENT: Approximately 35 minutes, was spent on coordinating the discharge of this patient. DICTATED BY: Timur Guo NP. /roxana/stephenie /Document#: [id number] JAZZ
== END 2016-10-15 17:50 | disposition home or self-care (01) | DRG 603 ==
LOC: E/R 10:03 → MS2 10:47
PROVIDERS: ADMIT Internal Medicine; ATTEND Internal Medicine
DX: L03.116 Cellulitis of left lower limb (principal); I87.2 Venous insufficiency (chronic) (peripheral); M79.81 Nontraumatic hematoma of soft tissue
CPT/HCPCS: 36415; 71010; 73721; 80048; 80053; 80061; 80202; 81001; 82652; 83036; 83605; 83735; 84100; 84484; 85025; 85610; 85730; 87040; 87070; 87086; 93005; 93971; 96365; J0690; J1650; J1956; J2543; J3370; J7030; J7040; J7050